=== PATIENT | female | born 1975 | race Caucasian/White ===

== ENCOUNTER → 2018-06-05 | Outpatient (CLI) | payer OTHER ==
--- NOTE | 2018-06-15 08:36 | Diagnostic Imaging Report ---
#[id number] - [id number] #BILATERAL FIRST EVER DIGITAL SCREENING MAMMOGRAM WITH CAD: 06/05/2018 CLINICAL: Routine screening. Baseline examination. No prior exams were available for comparison. Current study contains 4 films. The tissue of both breasts is heterogeneously dense. This may lower the sensitivity of mammography. Current study was also evaluated with a Computer Aided Detection (CAD) system. No significant masses, calcifications, or other findings are seen in either breast. IMPRESSION: NEGATIVE There is no mammographic evidence of malignancy. A 1 year screening mammogram is recommended. The patient will be notified by letter of the results. Fernie [place] Jr. Primo delvalle/dee dee:06/12/2018 11:00:17 Psychic Reader: Brittany SUGGS)(M), [facility] letter sent: Normal Exam Mammogram BI-RADS: 1 Negative
== END ==
LOC: MAMMO 09:15
PROVIDERS: ATTEND Specialist
DX: Z12.31 Encounter for screening mammogram for malignant neoplasm of breast (principal)
CPT/HCPCS: 77067

== ENCOUNTER → 2021-02-12 | Outpatient (CLI) | payer OTHER | LOC: MAMMO 15:35 | PROVIDERS: ATTEND Specialist | DX: Z12.31 Encounter for screening mammogram for malignant neoplasm of breast (principal) | CPT/HCPCS: 77067 ==